=== PATIENT | female | born 1975 | race Two or more races ===

== ENCOUNTER → 2016-08-26 | Outpatient (CLI) | payer OTHER ==
--- NOTE | 2016-08-26 14:33 | RAD ---
Left lower extremity venous ultrasound, 08/26/2016 : History: Left leg pain Duplex evaluation including grayscale, color flow and spectral Doppler analysis was performed. The femoral and popliteal veins show no filling defects to suggest DVT. The visualized calf veins are unremarkable. IMPRESSION: There is no sonographic evidence of deep vein thrombosis in the left lower extremity
== END | disposition home or self-care (01) ==
LOC: US 13:34
PROVIDERS: ATTEND Physician Assistant Surgical
DX: M79.605 Pain in left leg (principal); M79.89 Other specified soft tissue disorders
CPT/HCPCS: 93971